=== PATIENT | male | born 1955 | race African-American/Black ===

== ENCOUNTER 2019-03-08 11:26 | Emergency (ER) | payer BC ==
[~2019-03-08] VITALS: Ht 172.7 cm; Wt 65.0 kg
[~2019-03-08 11:26] MED LIST: ALBU2.5V13; AZIT500T5 PO; BP MED PO; P20 PO; P50 PO; PRED10TA PO; QUET300T2 PO; TRAM50TA3 PO; proair HFA INH
[2019-03-08] MEDS ORDERED: SODIUM CHLORIDE 0.9% 1,000 ML IV ONE (11:49)
[2019-03-08] MEDS ORDERED: MONT10TA24 PO (12:11)
[2019-03-08] MEDS ORDERED: FLUT1DIS3 IH (12:11)
[2019-03-08] MEDS ORDERED: ESZO3TAB40 PO (12:11)
[2019-03-08] MEDS ORDERED: QUET300T19 PO (12:11)
[2019-03-08] MEDS ORDERED: ESCI20TA36 PO (12:11)
[2019-03-08] MEDS ORDERED: LISI40TA4 PO (12:11)
[2019-03-08] MEDS ORDERED: AMIT25TA9 PO (12:11)
[2019-03-08 12:13] VITALS: BP 113/59
[2019-03-08 12:43] LABS: BASOPHILS % 0.2 % (0.0-2.0); EOSINOPHILS % 0.1 % (0.0-5.0); HEMATOCRIT. 41.5 % (42.0-52.0); HEMOGLOBIN. 13.6 g/dL (14.0-18.0); LYMPHOCYTES % 10.8 % (20.0-50.0); MEAN CORPUSCULAR HEMOGLOBIN 27.6 pg (28.0-32.0); MEAN CORPUSCULAR VOLUME 84.4 fL (80.0-94.0); MEAN PLATELET VOLUME 8.5 fl (7.4-10.4); MONOCYTES % 3.8 % (2.0-8.0); NEUTROPHILS % 85.1 % (40.0-76.0); PLATELET 204 x1000/uL (130-400); RED BLOOD CELL COUNT 4.92 mill/uL (4.7-6.1); RED CELL DISTRIBUTION WIDTH 15.6 % (11.6-14.6)
[2019-03-08 12:54] LABS: CHLORIDE 110 mEq/L (98-107)
[2019-03-08 13:03] LABS: ETHANOL BLOOD 38 mg/dL
[2019-03-08 14:52] LABS: CLARITY URINE CLEAR (CLEAR); COLOR URINE YELLOW (YELLOW); KETONES URINE TRACE (NEGATIVE); LEUKOCYTE ESTERASE URINE NEGATIVE (NEGATIVE); NITRITE URINE NEGATIVE (NEGATIVE); OCCULT BLOOD URINE NEGATIVE (NEGATIVE); PROTEIN URINE NEGATIVE (NEGATIVE); SPECIFIC GRAVITY URINE 1.018 (1.005-1.030); UROBILINOGEN URINE 0.2 E.U./dL (0.2-1.0)
[2019-03-08 15:15] LABS: *BARBITURATES SCREEN URINE NEGATIVE (NEGATIVE); *BENZODIAZEPINES SCREEN URINE NEGATIVE (NEGATIVE); *COCAINE SCREEN URINE NEGATIVE (NEGATIVE)
[2019-03-08 15:16] LABS: *AMPHETAMINES SCREEN URINE NEGATIVE (NEGATIVE); CANNABINOID URINE SCREEN NEGATIVE (NEGATIVE); METHADONE URINE SCREEN NEGATIVE (NEGATIVE); OPIATES URINE SCREEN NEGATIVE (NEGATIVE); PHENCYCLIDINE URINE SCREEN NEGATIVE (NEGATIVE)
== END 2019-03-08 15:48 | disposition home or self-care (01) ==
LOC: ER 11:44
DX: R55 Syncope and collapse (principal); I10 Essential (primary) hypertension; Z79.899 Other long term (current) drug therapy
CPT/HCPCS: 36415; 70450; 71045; 80053; 80305; 80320; 81003; 84484; 85025; 93005; 96360; 96361; 99291; J7030; Z7610; G0480